=== PATIENT | female | born 1955 | race African-American/Black ===

== ENCOUNTER → 2020-03-17 18:05 | Outpatient (CLI) | payer OTHER, SELFPAY ==
--- NOTE | ~2020-03-17 | DEXA_ITS ---
Bone Density Report Name: Anna Calles Age: 64 Sex: Female Ethnicity: Black Date of : 1955 Indication: postmenopausal; screening for osteoporosis; hysterectomy; Referring Provider: PHYSICIAN NOT ON STAFF Study: Bone densitometry was performed. Exam Date: March 17, 2020 Accession number: [id number] Bone Density: Region BMD T-score Z-score Classification AP Spine (L1-L4) 1.536 4.4 5.5 Normal Femoral Neck (Left) 1.179 3.0 2.9 Normal Total Hip (Left) 1.303 3.0 2.7 Normal Femoral Neck (Right) 1.074 2.0 2.2 Normal Total Hip (Right) 1.243 2.5 2.3 Normal Total Hip Mean 1.273 2.8 2.5 Normal World Health Organization criteria for BMD impression classify patients as: Normal (T-score at or above -1.0), Osteopenia (T-score between -1.0 and -2.5), or Osteoporosis (T-score at or below -2.5). 10-year Fracture Risk: FRAX not reported because: All T-scores for Spine Total, Hip Total, Femoral Neck at or above -1.0 Previous Exams: Region Exam Age BMD T-score BMD Change BMD Change Date g/cm2 vs Baseline vs Previous AP Spine(L1-L4) 03/17/2020 64 1.536 4.4 0.151* 0.151* 07/15/2006 50 1.385 3.1 Total Hip(Left) 03/17/2020 64 1.303 3.0 0.000 0.000 07/15/2006 50 1.303 3.0 Total Hip(Right) 03/17/2020 64 1.243 2.5 0.034* 0.034* 07/15/2006 50 1.209 2.2 *Denotes significance at 95% confidence level, LSC for AP Spine = 0.022 g/cm2, LSC for Total Hip = 0.027 g/cm2 Clinical Information Provided by Patient: Has used the following medications: Vitamin D Has the following medical conditions: Hysterectomy Patient maximum height was 63.0 Menopause Age: 47 Drinks caffeinated beverages Onset of menses at age 9 Number of children 0 Impression: The patient has normal bone mass. No significant bone loss was observed. Discussion: LOW RISK OF FRACTURE; BONE DENSITY IS WELL ABOVE THE MINIMUM DESIRABLE LEVEL AND ABOVE AVERAGE FOR AGE AND SEX AT ALL SKELETAL SITES TESTED. This person's bone density is above expected limits for age and sex. This is rarely clinically significant, but should be pursued if there are significant musculoskeletal complaints. The patient should follow a healthful lifestyle (good nutrition with adequate calcium and vitamin D, and appropriate weight-bearing exercise). Follow-Up: Consider repeating this study in 5 years or sooner if there is some new clinical ind
== END ==
DX: Z78.0 Asymptomatic menopausal state (principal)
CPT/HCPCS: 77080

== ENCOUNTER 2025-02-13 13:56 | Emergency (ER) | payer MEDICARE, SELFPAY ==
--- NOTE | ~2025-02-13 | XR_ITS ---
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 Findings: No acute fracture or malalignment. Moderate degenerative changes of the distal and proximal interphalangeal joints Soft tissues unremarkable. Impression: No acute fracture or malalignment. Reviewed, dictated and finalized at location P. FACTURING ASSISTANT Impression: No acute fracture or malalignment.
--- NOTE | 2025-02-13 14:01 | ED_ITS ---
HPI - General Adult General Chief complaint: Extremity Injury, Upper Stated complaint: Left Hand Pain Time Seen by Provider: 02/13/25 14:00 Source: patient Mode of arrival: ambulatory Limitations: no limitations History of Present Illness HPI narrative: Pt is a R. hand dominant 69 y/o female presenting with c/o L. hand pain, specifically to the L. 4th finger. 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 side. States a dog ran by and knocked her off her feet. 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 No paresthesias to the extremities. No neck or back pain. She denies striking her head. She denies LOC. No additional complaints. Related Data Home Medications ?Medication ?Instructions ?Recorded ?Confirmed ?Last Taken ?Type ketoconazole 2 % shampoo topical 02/13/25 Unknown Hi story metformin 500 mg tablet mg 02/13/25 Unknown History minoxidil 2.5 mg tablet mg 02/13/25 Unknown History rosuvastatin 5 mg tablet mg 02/13/25 Unknown History spironolactone 25 mg tablet mg 02/13/25 Unknown Histo ry Review of Systems Review of Systems: CONSTITUTIONAL: Denies body aches, fever, chills, or sweats. EYES: Denies visual changes, redness, or discharge. ENT: Denies rhinorrhea, congestion, sore throat, or otalgia. CARDIOVASCULAR: Denies chest pain, palpitations, or edema. RESPIRATORY: Denies cough or dyspnea. GASTROINTESTINAL: Denies abdominal pain, nausea, vomiting, or diarrhea. GENITOURINARY: Denies dysuria or hematuria. SKIN: Denies rash, itching, or wounds. MUSCULOSKELETAL:Reports L. 4th finger pain, L. hip pain. Denies back pain NEUROLOGIC: Denies headache, numbness, tingling, or weakness. PSYCH: Denies depression or anxiety. All systems reviewed & are unremarkable except as noted in HPI and below Exam Narrative: GENERAL: Well-appearing, well-nourished, and in no acute distress. HEAD: Normocephalic, atraumatic. EYES: EOMI. No redness or drainage. Conjunctivae normal. ENT: Mucous membranes pink and moist. NECK: Normal AROM. Supple. No cspine tenderness. CHEST: No respiratory distress. Clear to auscultation. HEART: Regular rate and rhythm. No murmur appreciated. Normal peripheral pulses. ABDOMEN: Soft, nontender, nondistended, normal active bowel sounds. MUSCULOSKELETAL: No bony tenderness. Tenderness with palpation along the lateral aspect of the L. mid thigh without erythema, edema, ecchymosis, open wounds or other acute findings. The L. hand is WNL with FROM, DNVI, no edema, erythema, ecchymosis, open wounds, nonTTP. no spinal process tenderness. +DNVI +FROM to all extremities. EXTREMITIES: Normal range of motion. No edema. SKIN: Warm, dry, no rash. Capillary refill normal. Normal skin turgor. NEURO: No focal deficits. Alert and oriented x3. Gait steady. PSYCH: Normal affect. No signs of depression or anxiety. Course Course Level of Care: Express Care Visit Vital Signs Vital signs: Vital Signs Temperature 97 F L 02/13/25 14:27 Pulse Rate 81 02/13/25 14:27 Respiratory Rate 16 02/13/25 14:27 Blood Pressure 145/73 H 02/13/25 14:27 Pulse Oximetry 100 02/13/25 14:27 Temperature 97 F L 02/13/25 14:27 Pulse Rate 81 02/13/25 14:27 Respiratory Rate 16 02/13/25 14:27 Blood Pressure 145/73 H 02/13/25 14:27 Pulse Oximetry 100 02/13/25 14:27 Medical Decision Making Vital Signs Vital Signs: Vital Signs Temperature 97 F L 02/13/25 14:27 Pulse Rate 81 02/13/25 14:27 Respiratory Rate 16 02/13/25 14:27 Blood Pressure 145/73 H 02/13/25 14:27 Pulse Oximetry 100 02/13/25 14:27 Temperature 97 F L 02/13/25 14:27 Pulse Rate 81 02/13/25 14:27 Respiratory Rate 16 02/13/25 14:27 Blood Pressure 145/73 H 02/13/25 14:27 Pulse Oximetry 100 02/13/25 14:27 Imaging Data Attestation: I personally reviewed and interpreted this imaging study as follows: My impression: NAF Discharge Plan Discharge Clinical Impression: Contusion of left thigh, initial encounter, Hand pain, left, Arthritis of hand, left, degenerative, Elevated blood pressure reading in office without diagnosis of hypertension Patient Disposition: Home Condition: Stable Instructions: Contusion in Adults (ED) Additional Instructions: Go straight to ER should your symptoms become worse or should any new symptoms develop Patient Language: Nauruan Prescriptions: No Action metformin 500 mg tablet ketoconazole 2 % shampoo TOPICAL minoxidil 2.5 mg tablet spironolactone 25 mg tablet rosuvastatin 5 mg tablet Follow-up/Referrals: UNKNOWN,DOCTOR [Non-Staff] - 02/14/25 Time of Disposition: 14:41
[2025-02-13 14:27] VITALS: BP 145/73; PULSE 81; RESP 16; TEMP 36.1; O2SAT 100
== END 2025-02-13 14:44 | disposition home or self-care (01) ==
PROVIDERS: Emergency Provider Registered Nurse; PCP Internal Medicine
DX: S70.12XA Contusion of left thigh, initial encounter (principal); W54.1XXA Struck by dog, initial encounter; M79.642 Pain in left hand; M19.042 Primary osteoarthritis, left hand; R03.0 Elevated blood-pressure reading, without diagnosis of hypertension
CPT/HCPCS: 73130; 99213; G0463